=== PATIENT | female | born 1990 | race Caucasian/White ===

== ENCOUNTER 2025-02-08 15:27 | Inpatient (IN) | payer MEDICAID, OTHER ==
--- NOTE | 2025-02-08 20:48 | ED ---
Psych HPI - General Chief Complaint: Psychiatric Symptoms Stated Complaint: mental health eval - petition Time Seen by Provider: 02/08/25 19:00 Source: patient, police, RN notes reviewed Mode of arrival: ambulatory Limitations: no limitations - History of Present Illness Initial Comments: 34-year-old female presents emergency department with police from [facility] for psychiatric valuation. Patient states she is having increasing depression, suicide ideation. Patient states that she would like to overdose on meds. Patient has a history of bipolar disorder states that she has been receiving her medication over the last week. She does have a history of drug abuse - Related Data Allergies Allergy/AdvReac Type Severity Reaction Status Date / Time amoxicillin [From Amoxil] Allergy Rash/Hives Verified 02/08/25 16:34 Review of Systems ROS Statement: Those systems with pertinent positive or pertinent negative responses have been documented in the HPI. ROS Other: All systems not noted in ROS Statement are negative. Past Medical History Past Medical History: No Reported History Past Surgical History: Adenoidectomy, Tonsillectomy Past Psychological History: Anxiety, Bipolar, PTSD Smoking Status: Current every day smoker, Vaper General Exam Limitations: no limitations General appearance: alert, in no apparent distress Head exam: Present: atraumatic, normocephalic, normal inspection Eye exam: Present: normal appearance, PERRL, EOMI. Absent: scleral icterus, conjunctival injection, periorbital swelling ENT exam: Present: normal exam, normal oropharynx, mucous membranes moist Neck exam: Present: normal inspection, full ROM. Absent: tenderness, meningismus, lymphadenopathy Respiratory exam: Present: normal lung sounds bilaterally. Absent: respiratory distress, wheezes, rales, rhonchi, stridor Cardiovascular Exam: Present: regular rate, normal rhythm, normal heart sounds. Absent: systolic murmur, diastolic murmur, rubs, gallop, clicks Neurological exam: Present: alert, oriented X3 Psychiatric exam: Present: depressed Course Vital Signs 02/08/25 16:29 Temperature 98.2 F Pulse Rate 67 Respiratory 16 Rate Blood Pressure 121/83 O2 Sat by Pulse 99 Oximetry Medical Decision Making - Medical Decision Making Was pt. sent in by a medical professional or institution (, PA, JUKEBOX CHECKER, urgent care, hospital, or retirement...) When possible be specific @ -No Did you speak to anyone other than the patient for history (EMS, parent, family, police, friend...)? What history was obtained from this source @ -No Did you review nursing and triage notes (agree or disagree)? Why? @ -I reviewed and agree with nursing and triage notes Were old charts reviewed (outside hosp., previous admission, EMS record, old EKG, old radiological studies, urgent care reports/EKG's, retirement records)? Report findings @ -No old charts were reviewed Differential Diagnosis (chest pain, altered mental status, abdominal pain women, abdominal pain men, vaginal bleeding, weakness, fever, dyspnea, syncope, headache, dizziness, GI bleed, back pain, seizure, CVA, palpatations, mental health, musculoskeletal)? @ -Differential Mental Health Depression, anxiety, bipolar, psychosis, schizophrenia, borderline personality, situational depression, adjustment disorder, behavioral disorder, brain tumor, malingering, substance abuse, encephalopathy, medication reaction, dementia, hypothyroidism, degenerative neurologic disorder, lupus.... This is not meant to be all-inclusive list EKG interpreted by me (3pts min.). @ -None X-rays interpreted by me (1pt min.). @ -None done CT interpreted by me (1pt min.). @ -None done U/S interpreted by me (1pt. min.). @ -None done What testing was considered but not performed or refused? (CT, X-rays, U/S, l abs)? Why? @ -None What meds were considered but not given or refused? Why? @ -None Did you discuss the management of the patient with other professionals (professionals i.e. , PA, JUKEBOX CHECKER, lab, RT, psych nurse, social work professor, product engineer, teacher, occupational health and safety officer, heel caser)? Give summary @ -EPS evaluate patient recommended inpatient treatment. Was smoking cessation discussed for >3mins.? @ -No Was critical care preformed (if so, how long)? @ -No Were there social determinants of health that impacted care today? How? (Homelessness, low income, unemployed, alcoholism, drug addiction, transportation, low edu. Level, literacy, decrease access to med. care, [facility], rehab)? @ -No Was there de-escalation of care discussed even if they declined (Discuss DNR or withdrawal of care, Hospice)? DNR status @ -No What co-morbidities impacted this encounter? (DM, HTN, Smoking, COPD, CAD, Cancer, CVA, ARF, Chemo, Hep., AIDS, mental health diagnosis, sleep apnea, morbid obesity)? @ -None Was patient admitted / discharged? Hospital course, mention meds given and route, prescriptions, significant lab abnormalities, going to OR and other pertinent info. @ -Admit to 3 W. Undiagnosed new problem with uncertain prognosis? @ -No Drug Therapy requiring intensive monitoring for toxicity (Heparin, Nitro, Insulin, Cardizem)? @ -No Were any procedures done? @ -No Diagnosis/symptom? @ -Depression bipolar disorder Acute, or Chronic, or Acute on Chronic? @ -Acute Uncomplicated (without systemic symptoms) or Complicated (systemic symptoms)? @ -Complicated Side effects of treatment? @ -No Exacerbation, Progression, or Severe Exacerbation? @ -No Poses a threat to life or bodily function? How? (Chest pain, [place], [place], pneumonia, PE, COPD, DKA, ARF, appy, cholecystitis, CVA, Diverticulitis, Homicidal, Suicidal, threat to staff... and all critical care pts) @ -Yes suicidal ideation - Lab Data Lab Results 02/08/25 02/08/25 02/08/25 Range/Units 20:03 22:00 22:00 Urine HCG, Qual Not Detected (Not Detectd) Urine Opiates Screen Not Detected (NotDetected) Ur Oxycodone Screen Not Detected (NotDetected) Urine Methadone Screen Not Detected (NotDetected) Ur Barbiturates Screen Not Detected (NotDetected) U Tricyclic Antidepress Detected H (NotDetected) Ur Phencyclidine Scrn Not Detected (NotDetected) Ur Amphetamines Screen Not Detected (NotDetected) U Methamphetamines Scrn Not Detected (NotDetected) U Benzodiazepines Scrn Not Detected (NotDetected) Urine Cocaine Screen Not Detected (NotDetected) U Marijuana (THC) Screen Not Detected (NotDetected) SARS-CoV-2 (PCR) Not Detected (Not Detectd) Disposition Clinical Impression: Depression, Suicidal ideation, Bipolar disorder Disposition: TRANSFER TO PSYCH HOSP/UNIT Referrals: None,Stated [Primary Care Provider] - 1-2 days Time of Disposition: 23:18
[2025-02-08 22:38] LABS: Barbiturate Screen,Urine Not Detected (NotDetected); Benzodiazepines Screen,Urine Not Detected (NotDetected); Opiate Screen,Urine Not Detected (NotDetected); Oxycodone Screen, Urine Not Detected (NotDetected); Phencyclidine Screen,Urine Not Detected (NotDetected); Tricyclic Antidepressant,Urine Detected (NotDetected); Urn Cannabinoid Scrn Not Detected (NotDetected)
[2025-02-08] MEDS ORDERED: LORazepam 1 MG TAB PO PRN (23:53)
[2025-02-08] MEDS ORDERED: OLANZapine 10 MG VIAL IM PRN (23:53)
[2025-02-09] MEDS: LORazepam 1 MG TAB PO PRN (01:25)
[2025-02-09] MEDS: FOLIC ACID 1 MG TAB PO SCH (08:04)
[2025-02-09] MEDS: THIAMINE 100 MG TAB PO SCH (08:04)
[2025-02-09] MEDS: MULTIVITAMINS, THERA 1 EACH TAB PO SCH (08:04)
[2025-02-09] MEDS: DULoxetine HCL 60 MG CAPSULE.DR PO SCH (08:04)
[2025-02-09 08:13] LABS: Basophils # (A) 0.06 10*3/uL (0.00-0.10); Basophils % (A) 1.0 %; Eosinophils # (A) 0.15 10*3/uL (0.04-0.35); Eosinophils % (A) 2.4 %; HCT 41.3 % (37.2-46.3); HGB 13.7 g/dL (12.0-15.0); Lymphocytes # (A) 3.15 10*3/uL (0.90-5.00); Lymphocytes % (A) 50.3 %; MCH 30.2 pg (27.0-32.0); MCHC 33.2 g/dL (32.0-37.0); MCV 91.0 fL (80.0-97.0); Monocytes # (A) 0.52 10*3/uL (0.20-1.00); Monocytes % (A) 8.3 %; Neutrophils # (A) 2.36 10*3/uL (1.80-7.70); Neutrophils % (A) 37.7 %; Platelet Count 262 10*3/uL (140-440); RBC 4.54 10*6/uL (4.10-5.20); RDW 13.0 % (11.5-14.5); WBC 6.26 10*3/uL (4.50-10.00)
[2025-02-09] MEDS: NICOTINE GUM (POLACRILEX) 2 MG GUM BUCCAL PRN (08:32)
[2025-02-09 08:33] LABS: ALT 111 U/L (4-34); AST 44 U/L (14-36); African American GFR (CKD) >90 (>60 ml/min/1.73 sqM); Albumin 4.0 g/dL (3.5-5.0); Alkaline Phosphatase 53 U/L (38-126); Anion Gap 5 mmol/L; Blood Urea Nitrogen 16 mg/dL (7-17); Calcium 9.4 mg/dL (8.4-10.2); Carbon Dioxide 31 mmol/L (22-30); Chloride 104 mmol/L (98-107); Glucose 91 mg/dL (74-99); Non-African American GFR(CKD) 78 (>60 ml/min/1.73 sqM); Potassium 4.6 mmol/L (3.5-5.1); Sodium 140 mmol/L (137-145); Total Protein 6.8 g/dL (6.3-8.2)
[2025-02-09] MEDS ORDERED: NICOTINE 14MG/24HR PATCH TRANSDERM SCH (09:00)
--- NOTE | 2025-02-09 12:20 | P.HP ---
Psychiatric H&P - . H&P Date: 02/09/25 History & Physical: Allergies Allergy/AdvReac Type Severity Reaction Status Date / Time amoxicillin from Amoxil Allergy Rash/Hives Verified 02/08/25 16:34 Vital Signs Temp 97.8 F 02/09/25 08:03 Pulse 118 H 02/09/25 08:03 Resp 18 02/09/25 08:03 BP 101/67 02/09/25 08:32 Pulse Ox 99 02/09/25 08:03 FiO2 Intake & Output 02/08/25 02/09/25 02/09/25 18:59 06:59 18:59 Weight 90.718 kg 85.417 kg Laboratory Last Values WBC 6.26 10*3/uL (4.50-10.00) 02/09/25 07:55 RBC 4.54 10*6/uL (4.10-5.20) 02/09/25 07:55 Hgb 13.7 g/dL (12.0-15.0) 02/09/25 07:55 Hct 41.3 % (37.2-46.3) 02/09/25 07:55 MCV 91.0 fL (80.0-97.0) 02/09/25 07:55 MCH 30.2 pg (27.0-32.0) 02/09/25 07:55 MCHC 33.2 g/dL (32.0-37.0) 02/09/25 07:55 Plt Count 262 10*3/uL (140-440) 02/09/25 07:55 MPV 9.5 fL (9.5-12.2) 02/09/25 07:55 Immature Gran % (Auto) 0.3 % 02/09/25 07:55 Neutrophils % 37.7 % 02/09/25 07:55 Lymphocytes % 50.3 % 02/09/25 07:55 Monocytes % 8.3 % 02/09/25 07:55 Eosinophils % 2.4 % 02/09/25 07:55 Basophils % 1.0 % 02/09/25 07:55 Immature Gran # 0.02 10*3/uL (0.00-0.04) 02/09/25 07:55 Neutrophils # 2.36 10*3/uL (1.80-7.70) 02/09/25 07:55 Lymphocytes # 3.15 10*3/uL (0.90-5.00) 02/09/25 07:55 Monocytes # 0.52 10*3/uL (0.20-1.00) 02/09/25 07:55 Eosinophils # 0.15 10*3/uL (0.04-0.35) 02/09/25 07:55 Basophils # 0.06 10*3/uL (0.00-0.10) 02/09/25 07:55 Sodium 140 mmol/L (137-145) 02/09/25 07:55 Potassium 4.6 mmol/L (3.5-5.1) 02/09/25 07:55 Chloride 104 mmol/L (98-107) 02/09/25 07:55 Carbon Dioxide 31 mmol/L (22-30) H 02/09/25 07:55 Anion Gap 5 mmol/L 02/09/25 07:55 BUN 16 mg/dL (7-17) 02/09/25 07:55 Creatinine 0.94 mg/dL (0.52-1.04) 02/09/25 07:55 Est GFR (CKD-EPI)AfAm >90 (>60 ml/min/1.73 sqM) 02/09/25 07:55 Est GFR (CKD-EPI)NonAf 78 (>60 ml/min/1.73 sqM) 02/09/25 07:55 Glucose 91 mg/dL (74-99) 02/09/25 07:[address] Glu mg/dL 117 mg/dL 02/09/25 07:55 Hemoglobin A1c 5.7 % (<=6.0) 02/09/25 07:55 Calcium 9.4 mg/dL (8.4-10.2) 02/09/25 07:55 Total Bilirubin 0.4 mg/dL (0.2-1.3) 02/09/25 07:55 AST 44 U/L (14-36) H 02/09/25 07:55 ALT 111 U/L (4-34) H 02/09/25 07:55 Alkaline Phosphatase 53 U/L (38-126) 02/09/25 07:55 Total Protein 6.8 g/dL (6.3-8.2) 02/09/25 07:55 Albumin 4.0 g/dL (3.5-5.0) 02/09/25 07:55 TSH 5.140 mIU/L (0.465-4.680) H 02/09/25 07:55 Urine HCG, Qual Not Detected (Not Detectd) 02/08/25 22:00 Urine Opiates Screen Not Detected (NotDetected) 02/08/25 22:00 Ur Oxycodone Screen Not Detected (NotDetected) 02/08/25 22:00 Urine Methadone Screen Not Detected (NotDetected) 02/08/25 22:00 Ur Barbiturates Screen Not Detected (NotDetected) 02/08/25 22:00 U Tricyclic Antidepress Detected (NotDetected) H 02/08/25 22:00 Ur Phencyclidine Scrn Not Detected (NotDetected) 02/08/25 22:00 Ur Amphetamines Screen Not Detected (NotDetected) 02/08/25 22:00 U Methamphetamines Scrn Not Detected (NotDetected) 02/08/25 22:00 U Benzodiazepines Scrn Not Detected (NotDetected) 02/08/25 22:00 Urine Cocaine Screen Not Detected (NotDetected) 02/08/25 22:00 U Marijuana (THC) Screen Not Detected (NotDetected) 02/08/25 22:00 SARS-CoV-2 (PCR) Not Detected (Not Detectd) 02/08/25 20:03 02/09/25 11:24 IDENTIFYING DATA: Patient is a 34-year-old female, who is coming from [facility], she is currently unemployed she has 5 kids she is single HPI: Patient presented to the hospital from the [facility], brought in due to increased depression and suicidal ideations with plan to overdose on medications. Patient was seen by EPS nurse and according to note "pt lying on stretcher in room. pt presents with labile affect. pt states that she was brought in for "suicidal thoughts" that have been "worsening the past couple weeks." pt states that she has been struggling with depression for some time, but had not had SI until recently. pt states that she has been drinking "probably 2 gallons" of vodka over the past 2 weeks. pt states that she had been drinking about a pint of vodka per day prior to being arrested. pt states that she had planned to overdose on fentanyl and that she had a "large amount being shipped to my house." pt reports that she became concerned about her SI, so she called 911 on herself. pt states that police came and she had warrants for back child support, so she was arrested. pt states that SI remain significant while she was in [facility] and she has had thoughts to cut her wrist, throat, or Hoskins's tendon. pt states that she did not ask for a razor while at the [facility] because she was worried that she would take it apart and attempt to cut herself. pt reports that she became concerned for herself when she stopped being scared of dying. pt continues to report SI. pt denies HI and hallucinations. No delusional thoughts verbalized. pt cooperative with assessment." Patient was seen today for psychiatric evaluation. Patient was lying in bed agreeable to speak to senior writer in the office. Claims that she has been having an increase in depression and suicidal ideations for the past several months. Claims that she had a plan to overdose on fentanyl in October and was admitted to the psychiatric hospital outside, claims that she was compliant with medications at that time and did go to [facility] however stopped going and stopped taking her medications appropriately. Claims that she was attending the use "marijuana" to help stabilize her symptoms. She states that she was in a "downward spiral" and claims that she has been feeling more depressed lately and suicidal. Claims that she has been drinking more recently about a pint a day of vodka. States that she does have minor withdrawal symptoms at this time her last drink was on Friday. States that she does have a history of several manic episodes and has had bipolar disorder for "several years". Claims that her sleep and appetite have been on and off lately. Patient admits to having suicidal ideations at this time, no plan or intent, denies any homicidal ideations intent or plan. At this time patient denies any auditory or visual hallucinations. Patient denies any flight of ideas racing thoughts and increased in goal directed behavior. Patient a dmits to using alcohol regularly as noted above, vapoes nicotine, also uses cannabis. Urine direction is positive for TCAs PAST PSYCHIATRIC HISTORY: Patient has a history of bipolar disorder for several years. Claims that she is currently on Cymbalta BuSpar and Seroquel, has been taking it inconsistently. Her last psychiatric hospitalization was at [facility] in October 2024. Claims that she was following up at [facility] with her psychiatrist Dr. Murphy. Claims that she overdosed on pills because PMH: as per ER note ALLERGIES: as per EMR CHEMICAL DEPENDENCY HISTORY: as per HPI FAMILY PSYCHIATRIC/SUBSTANCE USE HISTORY: Claims that several of her siblings have mental illness including bipolar disorder, also claims that her mother has bipolar disorder SOCIAL HISTORY: Patient was born and raised in [place]. Claims that she completed up to ninth grade in school, states that she has been employed on and off currently unemployed. Previously worked in a [employer]. States that she has been in [facility] several times in the past including having domestic violence charges drug-related and also retail fraud. Currently has been in [facility] for the past 5 days for nonpayment of child support. MENTAL STATUS EXAM: General Appearance: Patient appears to be tall, hair tied back, stated age is alert, directable, and attempts to cooperate. Patient appears to have poor hygiene and grooming. Behavior: Patient is seated without any agitated behavior. Attempts to cooperate Speech: Patient's speech is fluent and nonpressured. Mood/Affect: Patient reports their mood is depressed and anxious, affect is congruent and constricted. Suicidality/Homicidality: Patient denies having any homicidal ideation intent or plan. Admits to suicidal thoughts and no intent or plan Perceptions: Patient denies any visual hallucinations and denies any auditory hallucinations Though content/process: There is no evidence of any delusional thought content and thought process is linear and goal-directed. Memory and concentration: AOX3, grossly intact for the purposes of this session. Can spell "WORLD" backwards Judgment and insight: Poor STRENGTHS/WEAKNESSES: strength is that patient is resilient. Weakness is that patient has poor judgment and is impulsive INTELLECT: Average IMPRESSIONS: Bipolar disorder, current episode depressed Cannabis use disorder Alcohol use disorder Nicotine dependence PLAN: -Patient is admitted under voluntary status to [facility]HU for stabilization of psychiatric symptoms and safety. Patient has signed adult voluntary form and has signed medication consent and is placed in patient's chart. -Medications : Cymbalta decreased to 30 mg daily for mood/anxiety, BuSpar 20 mg 3 times daily for anxiety, lithium ER 450 mg nightly for mood stabilization/suicidal ideations, doxepin 10 mg nightly for insomnia. -Ativan and Haldol PRN for agitation/aggression -Started thiamine, MVM for etoh use -CIWA protocol with Ativan PRN for ETOH withdrawal. Scheduled Librium for alcohol withdrawal with plan to taper. -Patient was counselled on substance abuse and desired to cut back on use. Will offer patient subtance use rehab -Patient was informed of the risks, benefits and side effects of the medications and patient verbally consented to taking the medications. Patient signed med consent form and was placed in chart. Patient was offered medication information and accepted it -Internal Medicine consult to perform medical evaluation and physical. -NRT -nicotine patch -SW on board for discharge planning. Encourage patient to participate in groups to work on coping skills. 02/09/25 12:14
[2025-02-09 15:26] LABS: Cholesterol 177.00 mg/dL (0.00-200.00); HDL Cholesterol 69.60 mg/dL (40.00-60.00); LDL Cholesterol,Calculated 87.0 mg/dL (0.0-131.0); Triglycerides 102.00 mg/dL (0.00-149.00); VLDL Calculation 20.40 mg/dL (5.00-40.00)
[2025-02-09 16:42] LABS: Bacteria,Urine Occasional /hpf; Bilirubin,Urine Negative (Negative); Blood,Urine Negative (Negative); Color,Urine Colorless; Glucose,Urine (UA) Negative (Negative); Ketones,Urine Negative (Negative); Leukocyte Esterase,Urine Negative (Negative); Nitrite,Urine Negative (Negative); PH, Urine 7.0 (5.0-8.0); Protein,Urine Negative (Negative); RBC,Urine 1 /hpf (0-5); Specific Gravity,Urine 1.009 (1.001-1.035); Squamous Epithelial Cell,Urine 1 /hpf (0-4); Urobilinogen,Urine <2.0 mg/dL (<2.0); WBC,Urine 1 /hpf (0-5)
[2025-02-09] MEDS: DOXEPIN 10 MG CAP PO SCH (20:24)
[2025-02-09] MEDS: LITHIUM CARBONATE ER 450 MG TABLET.ER PO SCH (20:24)
[2025-02-09] MEDS: OLANZapine 5 MG TAB PO PRN (23:26)
--- NOTE | 2025-02-10 07:28 | P.MDCNMH ---
History of Present Illness H&P Date: 02/09/25 34 year old with alcohol abuse Patient is here for mental health evaluation , after being released from nursing home Medicine consulted for medical management Patient has concerns regarding sexually transmitted diseases she did not specify any symptoms of increased discharge or any lesions however she has multiple partners and would like to get tested Patient denies any fevers chills nausea vomiting abdominal pain chest pain trouble breathing denies any dizziness lightheadedness denies any urinary changes or bowel habit changes denies any focal neurodeficits Review of systems All systems reviewed with pertinent positive negatives as per HPI on exam Constitutional: No acute distress, conversant, pleasant Eyes: Anicteric sclerae, moist conjunctiva, Pupils equal round reactive to light Neck: Supple, no masses, or JVD No carotid bruits No thyromegaly Lungs: Clear to auscultation Clear to percussion Normal respiratory effort, no accessory muscle use Cardiovascular: Heart regular in rate and rhythm, No murmurs, gallops, or rubs No peripheral edema Abdominal: Soft Nontender, no guarding, rebound or rigidity Abdomen moving with respiration Tenderness to percussion over the costovertebral angle left Extremities: No digital cyanosis No clubbing Pedal pulses intact and symmetrical Radial pulses intact and symmetrical No calf tenderness Psychiatric: Alert and oriented to person, place and time Neuro Muscles Strength 5/5 in all 4 extremities Sensation to light touch grossly present throughout Cranial nerves II-XII grossly intact Assessment and plan High risk sexual behavior Check for STDs Check for HIV and hepatitis Patient denies any symptoms at this time thank you for this consultation Past Medical History Past Medical History: No Reported History History of Any Multi-Drug Resistant Organisms: None Reported Past Surgical History: Adenoidectomy, Tonsillectomy Past Anesthesia/Blood Transfusion Reactions: No Reported Reaction Smoking Status: Current every day smoker, Vaper Medications and Allergies Home Medications Medication Instructions Recorded Confirmed Type DULoxetine HCL [Cymbalta] 60 mg PO DAILY 02/08/25 02/08/25 History QUEtiapine [SEROquel] 200 mg PO HS 02/08/25 02/08/25 History busPIRone HCL [Buspirone HCl] 10 mg PO TID 02/08/25 02/08/25 History Allergies Allergy/AdvReac Type Severity Reaction Status Date / Time amoxicillin [From Amoxil] Allergy Rash/Hives Verified 02/08/25 16:34 Physical Exam Vitals: Vital Signs Temp Pulse Resp BP Pulse Ox 02/09/25 21:00 98.1 F 100 16 115/72 99 02/09/25 08:32 101/67 02/09/25 08:03 97.8 F 118 H 18 82/54 99 Cranial Nerve Examination - Cranial Nerves Cranial Nerve II- Optic: Intact Cranial Nerve III- Oculomotor: Intact Cranial Nerve IV- Trochlear: Intact Cranial Nerve V- Trigeminal: Intact Cranial Nerve - Abducens: Intact Cranial Nerve VII- Facial: Intact Cranial Nerve VIII- Auditory: Intact Cranial Nerve IX- Glossopharyngeal: Intact Cranial Nerve X- Vagus: Intact Cranial Nerve XI- Accessory: Intact Cranial Nerve XII- Hypoglossal: Intact Results CBC & Chem 7: 02/09/25 07:55 02/09/25 07:55 Labs: Abnormal Lab Results - Last 24 Hours (Table) 02/09/25 02/09/25 Range/Units 03:06 07:55 Carbon Dioxide 31 H (22-30) mmol/L AST 44 H (14-36) U/L ALT 111 H (4-34) U/L HDL Cholesterol 69.60 H (40.00-60.00) mg/dL TSH 5.140 H (0.465-4.680) mIU/L Urine Appearance Cloudy H (Clear) Urine Bacteria Occasional H (None) /hpf
[2025-02-10 10:41] LABS: Hepatitis A Antibody IgM Nonreactive (Nonreactive); Hepatitis B Surface Antigen Nonreactive (Nonreactive); Hepatitis C IgG Antibody Nonreactive (Nonreactive)
--- NOTE | 2025-02-10 11:40 | P.PN ---
Progress Note - Text Progress Note Date: 02/10/25 Interval history: Patient was seen today for psychiatric follow-up. She was lying in bed with a bit hesitant to speak to technical proposal writer however did cooperate. Claims that she feels that she did not sleep well last night, only got about 1 or 2 hours. Claims that she still feels "exhausted". She claims that she has been taking the medications not reporting any side effects at this time. Claims that she is still feeling depressed and endorsing anxiety. Claims that her appetite is mildly improving since yesterday. Hygiene and grooming appear to be mildly improving. Has been going to some groups, denies any auditory or visual hallucinations denies any suicidal or homicidal ideations intent or plan. MENTAL STATUS EXAM: General Appearance: Patient appears to be tall, hair tied back, stated age is alert, directable, and attempts to cooperate. Patient appears to have Improving mildlyhygiene and grooming. Behavior: Patient is seated without any agitated behavior. Attempts to cooperate Speech: Patient's speech is fluent and nonpressured. Mood/Affect: Patient reports their mood is depressed and anxious, affect is congruent and constricted. Improving mildly Suicidality/Homicidality: Patient denies having any homicidal ideation intent or plan. Admits to suicidal thoughts and no intent or plan Perceptions: Patient denies any visual hallucinations and denies any auditory hallucinations Though content/process: There is no evidence of any delusional thought content and thought process is linear and goal-directed. [place] today Memory and concentration: AOX3, grossly intact for the purposes of this session Judgment and insight: Poor, improving mildly IMPRESSIONS: Bipolar disorder, current episode depressed Cannabis use disorder Alcohol use disorder Nicotine dependence PLAN: -Patient is admitted under voluntary status to [facility] for stabilization of psychiatric symptoms and safety. Patient has signed adult voluntary form and has signed medication consent and is placed in patient's chart. -Medications : Cymbalta 30 mg daily for mood/anxiety, BuSpar 20 mg 3 times daily for anxiety, lithium ER 450 mg nightly for mood stabilization/suicidal ideations, increase doxepin 20 mg nightly for insomnia. -Ativan and Haldol PRN for agitation/aggression -thiamine, MVM for etoh use -CIWA protocol with Ativan PRN for ETOH withdrawal. Scheduled Librium for alcohol withdrawal with plan to continue tapering Hopeful for discharge early next week if patient is improving.-NRT -nicotine patch -SW on board for discharge planning. Encourage patient to participate in groups to work on coping skills. Patient continues to be on a senior care hold. hopeful for discharge friday - friday
[2025-02-10 15:04] LABS: HIV 2 AB Non-Reactive (Non-Reactive); HIV AB P24 Non-Reactive (Non-Reactive); HIV P24 AG Non-Reactive (Non-Reactive)
[2025-02-10] MEDS: DOXEPIN 10 MG CAP PO SCH (19:59)
[2025-02-10] MEDS ORDERED: DOXEPIN 25 MG CAP PO SCH (21:00)
--- NOTE | 2025-02-11 12:13 | P.PN ---
Progress Note - Text Progress Note Date: 02/11/25 Interval history: Patient was seen today for psychiatric follow-up. The patient wanted to speak to telegraphic typewriter operator in her room today. Patient states that she is feeling fairly tired during the day, was asking about why she feels this way and if it is related to her medications. Claims that she is having difficulty sleeping last night, claims that the doxepin has not been helping, claims that she wants to be back on her Seroquel as I worked in the past. States that her mood has been improving however and also anxiety as well. Has not been going to many groups. Claims that she is up for meals. Not reporting any other side effects. Hygiene and grooming appear to be mildly improving. Has been going to some groups, denies any auditory or visual hallucinations denies any suicidal or homicidal ideations intent or plan. MENTAL STATUS EXAM: General Appearance: Patient appears to be tall, hair tied back, stated age is alert, directable, and attempts to cooperate. Patient appears to have Improving mildlyhygiene and grooming. Behavior: Patient is seated without any agitated behavior. Attempts to cooperate, improving mildly Speech: Patient's speech is fluent and nonpressured. Mood/Affect: Patient reports their mood is improving mildly, affect is congruent and constricted. Improving mildly Suicidality/Homicidality: Patient denies having any homicidal ideation intent or plan. Admits to suicidal thoughts and no intent or plan Perceptions: Patient denies any visual hallucinations and denies any auditory hallucinations Though content/process: There is no evidence of any delusional thought content and thought process is linear and goal-directed. [place] today Memory and concentration: AOX3, grossly intact for the purposes of this session Judgment and insight: Poor, improving mildly IMPRESSIONS: Bipolar disorder, current episode depressed Cannabis use disorder Alcohol use disorder Nicotine dependence PLAN: -Patient is admitted under voluntary status to [facility] for stabilization of psychiatric symptoms and safety. Patient has signed adult voluntary form and has signed medication consent and is placed in patient's chart. -Medications : increase/change Cymbalta 60 mg HS for mood/anxiety, decrease BuSpar 10 mg 3 times daily for anxiety, lithium ER 450 mg nightly for mood stabilization/suicidal ideations, d/c doxepin due to patient request and restart seroquel 100 mg qhs for sleep/anxiety/mood adjunct -Check lithium level Friday - Zyprexa PRN for agitation/aggression -thiamine, MVM for etoh use -d/c CIWA protocol with Ativan PRN for ETOH withdrawal. d/c Librium for alcohol withdrawal -NRT -nicotine patch + gum -SW on board for discharge planning. Encourage patient to participate in groups to work on coping skills. Patient continues to be on a [facility] hold. hopeful for discharge friday-friday if patient is improving.
[2025-02-11] MEDS: NICOTINE GUM (POLACRILEX) 2 MG GUM BUCCAL PRN (13:42)
[2025-02-11] MEDS: DULoxetine HCL 60 MG CAPSULE.DR PO SCH (20:17)
[2025-02-11] MEDS: QUEtiapine 100 MG TAB PO SCH (20:18)
[2025-02-11] MEDS: MAGNESIUM HYDROXIDE 2,400 MG/30 ML CUP PO PRN (20:48)
[2025-02-12] MEDS: IBUPROFEN 600 MG TAB PO PRN (16:04)
[2025-02-12] MEDS: LITHIUM CARBONATE ER 450 MG TABLET.ER PO SCH (16:26)
[2025-02-12] MEDS: DULoxetine HCL 60 MG CAPSULE.DR PO SCH (16:26)
[2025-02-12 17:01] LABS: Glucose,Whole Blood 164 mg/dL (70-110)
[2025-02-12] MEDS: MAG HYDROX/AL HYDROX/SIMETH 355 ML BOTTLE PO PRN (21:38)
--- NOTE | 2025-02-13 20:40 | P.PN ---
Progress Note - Text Progress Note Date: 02/12/25 Interval history: Patient was seen today, appeared polite but anxious on assessment. She reports her mood is "pretty good" today. She reports she is having difficulty sleeping at night and believes this is because her Cymbalta and [place] are ordered for bedtime and they are keeping her awake so she prefers to have take them in the morning. She appears anxious, moving quickly when walking, talking a bit fast but not pressured. Otherwise she claims things are going well. She denies any auditory or visual hallucinations. She denies any suicidal or homicidal ideation, intent or plan. MENTAL STATUS EXAM: General Appearance: Patient appears to be tall, stated age, improving hygiene and grooming. Behavior: Patient is standing without any agitated behavior. Attempts to cooperate, improving mildly Speech: Patient's speech is fluent and non-pressured. Mood/Affect: Patient reports their mood is good, affect is congruent and constricted. Suicidality/Homicidality: Patient denies having any homicidal or suicidal ideation intent or plan. Perceptions: Patient denies any visual hallucinations and denies any auditory hallucinations Though content/process: There is no evidence of any delusional thought content and thought process is linear and goal-directed. Memory and concentration: AOX3, grossly intact for the purposes of this session Judgment and insight: Poor, improving mildly Assessment/plan: -Patient is admitted under voluntary status to [facility] for stabilization of psychiatric symptoms and safety. Patient has signed adult voluntary form and has signed medication consent and is placed in patient's chart. -Medications: Change Cymbalta 60 mg from bedtime to morning per patient preference. She will take today's dose in the afternoon and start with morning dose tomorrow morning. Change [place] ER 450 mg from bedtime to morning per patient preference. She will take today's dose in the afternoon and will start with morning dose tomorrow morning. -[place] level ordered for Friday. -Encourage patient to participate in groups to work on coping skills. -Patient continues to be on a shelter hold.
--- NOTE | 2025-02-13 20:49 | P.PN ---
Progress Note - Text Progress Note Date: 02/13/25 Interval history: Patient was seen today, was walking quickly in and out of her room multiple ti mes. She reports her mood is "pretty good" today. She is recorded as having slept about 6 hours last night, she reports it was 6-8 hours last night. She appears anxious, asks for her Seroquel increased at bedtime to help her sleep better, and asks for something to help with her anxiety so we discussed increasing the Buspar dose. Otherwise she claims things are going well. She denies any auditory or visual hallucinations. She denies any suicidal or homicidal ideation, intent or plan. MENTAL STATUS EXAM: General Appearance: Patient appears to be tall, stated age, improving hygiene and grooming. Behavior: Patient is standing without any agitated behavior. Attempts to cooperate, improving mildly Speech: Patient's speech is fluent and non-pressured. Mood/Affect: Patient reports their mood is good, affect is congruent and constricted. Suicidality/Homicidality: Patient denies having any homicidal or suicidal ideation intent or plan. Perceptions: Patient denies any visual hallucinations and denies any auditory hallucinations Though content/process: There is no evidence of any delusional thought content and thought process is linear and goal-directed. Memory and concentration: AOX3, grossly intact for the purposes of this session Judgment and insight: Poor, improving mildly Assessment/plan: -Patient is admitted under voluntary status to [facility] for stabilization of psychiatric symptoms and safety. Patient has signed adult voluntary form and has signed medication consent and is placed in patient's chart. -Medications: Continue Cymbalta 60 mg daily in the morning and [place] ER 450 mg daily in the morning. Increase Buspar to 15 mg TID for anxiety. Increase Seroquel from 100 mg QHS to 200 mg QHS for mood/sleep. -[place] level ordered for Friday morning. -Encourage patient to participate in groups to work on coping skills. -Patient continues to be on a [facility] hold.
[2025-02-13] MEDS: QUEtiapine 100 MG TAB PO SCH (21:35)
[2025-02-14] MEDS: diphenhydrAMINE 25 MG CAP PO STA (03:28)
[2025-02-14 08:56] LABS: Lithium 0.3 mmol/L
[2025-02-14] MEDS: DULoxetine HCL 60 MG CAPSULE.DR PO SCH (09:13)
[2025-02-14] MEDS: diphenhydrAMINE 25 MG CAP PO PRN (09:13)
[2025-02-14 09:21] LABS: T4, Free (Free Thyroxine) 0.49 ng/dL (0.78-2.19)
--- NOTE | 2025-02-14 10:16 | P.PN ---
Progress Note - Text Progress Note Date: 02/14/25 Patient TSH is high and FT4 is low so will start levothyroxince 100mcg PO daily. Patient will need to recheck her TSH in 6 weeks with her PCP
--- NOTE | 2025-02-14 11:32 | P.PN ---
Progress Note - Text Progress Note Date: 02/14/25 Interval history: Patient was seen today for psychiatric follow-up. The patient wanted to speak to typewriter ribbon winder in her room today. Patient appears to be more awake today, alert and talkative. Claims that she is feeling a bit better, does claim that she has ADHD however claims that no one will prescribe her stimulants. She did claim that she got into a argument with another patient on the unit who she believes is "harassing me" and trying to hit on her. She states that she is here for mental health and wants improved. Feels that she has been going to groups improving in terms of mood and anxiety. States that she likes the medications where they are at now and dose. She did claim that her ex-boyfriend probably cheated on her and claims that her urine smells "funny" and she does have a little bit of uncomfortableness when she urinates, asking for further STD testing. Claims that she is eating well going to groups. Not reporting any other side effects. Hygiene and grooming appear to be mildly improving. denies any auditory or visual hallucinations denies any suicidal or homicidal ideations intent or plan. MENTAL STATUS EXAM: General Appearance: Patient appears to be tall, hair tied back, stated age is alert, directable, and attempts to cooperate. Patient appears to have Improving mildlyhygiene and grooming. Behavior: Patient is seated without any agitated behavior. Attempts to cooperate, improving mildly Speech: Patient's speech is fluent and nonpressured. More talkative today Mood/Affect: Patient reports their mood is improving mildly, affect is congruent and constricted. Improving mildly Suicidality/Homicidality: Patient denies having any homicidal ideation intent or plan. Admits to suicidal thoughts and no intent or plan Perceptions: Patient denies any visual hallucinations and denies any auditory hallucinations Though content/process: There is no evidence of any delusional thought content and thought process is linear and goal-directed. Memory and concentration: AOX3, grossly intact for the purposes of this session Judgment and insight: improving mildly IMPRESSIONS: Bipolar disorder, current episode depressed Cannabis use disorder Alcohol use disorder Nicotine dependence PLAN: -Patient is admitted under voluntary status to [facility] for stabilization of psychiatric symptoms and safety. Patient has signed adult voluntary form and has signed medication consent and is placed in patient's chart. -Medications : Cymbalta 60 mg daily for mood/anxiety, BuSpar 15 mg 3 times daily for anxiety, lithium ER 450 mg nightly for mood stabilization/suicidal ideations, seroquel 200 mg qhs for sleep/anxiety/mood adjunct - Zyprexa PRN for agitation/aggression -check trich, gonorrhea and chlamydia testing today -thiamine, MVM for etoh use -NRT -nicotine patch + gum -SW on board for discharge planning. Encourage patient to participate in groups to work on coping skills. Patient continues to be on a custodial hold. not interested in rehab. hopeful for discharge friday if patient is improving.
[2025-02-14 20:46] VITALS: RESP 16
[2025-02-15] MEDS: LEVOTHYROXINE 100 MCG TAB PO SCH (06:59)
[2025-02-15 09:03] VITALS: BP 89/52; PULSE 95; TEMP 98
[2025-02-15] MEDS: ACETAMINOPHEN TAB 325 MG TAB PO PRN (11:13)
--- NOTE | 2025-02-15 11:23 | P.DS ---
Providers Date of admission: 02/08/25 23:41 Expected date of discharge: 02/15/25 Attending physician: Oscar Zhu MD Consults: 02/08/25 23:53 Consult Physician Routine Consulting Provider: [facility] Consult Reason/Comments: H&P and medical Do you want consulting provider notified?: Yes Primary care physician: Stated None - Discharge Diagnosis(es) (1) Bipolar disorder current episode depressed Current Visit: Yes Status: Acute Priority: High (2) Cannabis use disorder Current Visit: Yes Status: Acute Priority: Medium (3) Alcohol use disorder Current Visit: Yes Status: Acute Priority: Medium (4) Nicotine dependence Current Visit: Yes Status: Acute Priority: Low Hospital Course: Admission HPI: Admission note was completed by documentation writer "Patient is a 34-year-old female, who is coming from long term, she is currently unemployed she has 5 kids she is single. Patient presented to the hospital from the long term, brought in due to increased depression and suicidal ideations with plan to overdose on medications. Patient was seen by EPS nurse and according to note "pt lying on stretcher in room. pt presents with labile affect. pt states that she was brought in for "suicidal thoughts" that have been "worsening the past couple weeks." pt states that she has been struggling with depression for some time, but had not had SI until recently. pt states that she has been drinking "probably 2 gallons" of vodka over the past 2 weeks. pt states that she had been drinking about a pint of vodka per day prior to being arrested. pt states that she had planned to overdose on fentanyl and that she had a "large amount being shipped to my house." pt reports that she became concerned about her SI, so she called 911 on herself. pt states that police came and she had warrants for back child support, so she was arrested. pt states that SI remain significant while she was in long term and she has had thoughts to cut her wrist, throat, or Janeth's tendon. pt states that she did not ask for a razor while at the long term because she was worried that she would take it apart and attempt to cut herself. pt reports that she became concerned for herself when she stopped being scared of dying. pt continues to report SI. pt denies HI and hallucinations. No delusional thoughts verbalized. pt cooperative with assessment." Patient was seen today for psychiatric evaluation. Patient was lying in bed agreeable to speak to documentation writer in the office. Claims that she has been having an increase in depression and suicidal ideations for the past several months. Claims that she had a plan to overdose on fentanyl in October and was admitted to the psychiatric hospital outside, claims that she was compliant with medications at that time and did go to [facility] however stopped going and stopped taking her medications appropriately. Claims that she was attending the use "marijuana" to help stabilize her symptoms. She states that she was in a "downward spiral" and claims that she has been feeling more depressed lately and suicidal. Claims that she has been drinking more recently about a pint a day of vodka. States that she does have minor withdrawal symptoms at this time her last drink was on Friday. States that she does have a history of several manic episodes and has had bipolar disorder for "several years". Claims that her sleep and appetite have been on and off lately. Patient admits to having suicidal ideations at this time, no plan or intent, denies any homicidal ideations intent or plan. At this time patient denies any auditory or visual hallucinations. Patient denies any flight of ideas racing thoughts and increased in goal directed behavior. Patient admits to using alcohol regularly as noted above, vapoes nicotine, also uses cannabis. Urine direction is positive for TCAs" Hospital course: Upon admission to the unit patient was directable and agreeable to commence treatment and signed adult voluntary form. Patient was initially depressed and anxious suicidal however with time and treatment patient got along well with other patients on the unit and followed unit protocol. Patient was compliant with the medications and denied any side effects throughout hospital course. Patient was started on Cymbalta 60 mg daily for mood/anxiety, BuSpar increased to 20 mg twice daily for anxiety, Lithobid 450 mg nightly for mood stabilization/suicidal ideations, Seroquel 200 mg nightly for sleep/severe anxiety/mood adjunct, Zyprexa p.o. as needed for severe anxiety and agitation. Patient spoke of her stressors and engaged in therapy both group/activity th erapy. Patient was also seen by medical team for history and physical exam. Throughout the course of the hospitalization patient gradually improved with regards to mood, anxiety, suicidal thoughts, sleep and returned back to their baseline level of functioning. On the day of discharge patient denied any suicidal or homicidal ideations intent or plan denied any auditory or visual hallucinations. Patient did make vague statements of self-harm however this was mainly in the context of being discharged back to long term as an attempt to evade her sentence. Patient endorsed wanting to live for her family and her future. The patient denied any access to guns or weapons. Patient denied any paranoia and did not endorse any delusions. Patient does have a significant history of substance abuse and was counseled on abstaining from all substances including alcohol and marijuana. Patient was offered however declined inpatient substance-abuse rehab. Patient elected to do outpatient substance use treatment program through their outpatient provider. Patient was also counseled on the medications and need for regular compliance and was encouraged to follow-up with their outpatient appointment for mental health and also for primary care. Patient was a long term hold, will be returning back to long term upon discharge from the mental health unit. Mental status exam: General Appearance: Patient appears to be tall, stated age is alert, pleasant, and cooperative. Patient is in no acute distress and has improved hygiene and grooming Behavior: Patient is calmly seated without any agitated behavior. manipulative at times, deceptive. Speech: Patient's speech is fluent and nonpressured. Mood/Affect: Patient reports their mood is "ok", affect is congruent Suicidality/Homicidality: Patient denies having any suicidal or homicidal ideation intent or plan. Perceptions: Patient denies any auditory or visual hallucinations. Though content/process: There is no evidence of any delusional thought content and thought process is linear and goal-directed. focused on evading long term time Memory and concentration: AOX3, grossly intact for the purposes of this session. Can spell "WORLD" backwards correctly. Judgment and insight: Chronically poor, however has improved with guarded prognosis Impression: Bipolar disorder current episode depressed Alcohol use disorder Cannabis use disorder Nicotine dependence Personality disorder unspecified Plan: -Continue with discharge today as patient has improved and stabilized psychiatrically and is not currently an imminent threat to themself and/or othe rs. Patient will remain at chronically elevated risk for harm to self and/or others due to their impulsivity and substance abuse. -Continue medications: Cymbalta 60 mg daily for mood/anxiety, BuSpar 20 mg 3 times daily for anxiety, Lithobid 450 mg nightly for mood stabilization/suicidal ideations, Seroquel 200 mg nightly for sleep/severe anxiety/mood adjunct, Zyprexa p.o. 5 mg twice daily as needed for severe anxiety/agitation -Patient was counseled on the need for medication compliance and appropriate follow-up at mental health and also primary care for medical issues. Patient verbalized understanding and agreed. -Social work to help coordinate patients discharge today. also to ensure safe home environment that guns/weapons are either removed from the home or locked away. Social work also to arrange for patients follow up appointments with [facility] and provider through [facility] for psychiatric care along with follow up with primary care provider. -Patient counseled on abstaining from recreational drugs and marijuana and alcohol. Was informed/educated on the adverse effects on their physical and mental health. Patient verbally agreed and understood. -Patient was instructed to return to the hospital or seek immediate medical care if their psychiatric or medical symptoms do worsen or reoccur. Allergies Allergy/AdvReac Type Severity Reaction Status Date / Time amoxicillin [From Amoxil] Allergy Rash/Hives Verified 02/08/25 16:34 Laboratory Results WBC 6.26 10*3/uL (4.50-10.00) 02/09/25 07:55 RBC 4.54 10*6/uL (4.10-5.20) 02/09/25 07:55 Hgb 13.7 g/dL (12.0-15.0) 02/09/25 07:55 Hct 41.3 % (37.2-46.3) 02/09/25 07:55 MCV 91.0 fL (80.0-97.0) 02/09/25 07:55 MCH 30.2 pg (27.0-32.0) 02/09/25 07:55 MCHC 33.2 g/dL (32.0-37.0) 02/09/25 07:55 Plt Count 262 10*3/uL (140-440) 02/09/25 07:55 MPV 9.5 fL (9.5-12.2) 02/09/25 07:55 Immature Gran % (Auto) 0.3 % 02/09/25 07:55 Neutrophils % 37.7 % 02/09/25 07:55 Lymphocytes % 50.3 % 02/09/25 07:55 Monocytes % 8.3 % 02/09/25 07:55 Eosinophils % 2.4 % 02/09/25 07:55 Basophils % 1.0 % 02/09/25 07:55 Immature Gran # 0.02 10*3/uL (0.00-0.04) 02/09/25 07:55 Neutrophils # 2.36 10*3/uL (1.80-7.70) 02/09/25 07:55 Lymphocytes # 3.15 10*3/uL (0.90-5.00) 02/09/25 07:55 Monocytes # 0.52 10*3/uL (0.20-1.00) 02/09/25 07:55 Eosinophils # 0.15 10*3/uL (0.04-0.35) 02/09/25 07:55 Basophils # 0.06 10*3/uL (0.00-0.10) 02/09/25 07:55 Sodium 140 mmol/L (137-145) 02/09/25 07:55 Potassium 4.6 mmol/L (3.5-5.1) 02/09/25 07:55 Chloride 104 mmol/L (98-107) 02/09/25 07:55 Carbon Dioxide 31 mmol/L (22-30) H 02/09/25 07:55 Anion Gap 5 mmol/L 02/09/25 07:55 BUN 16 mg/dL (7-17) 02/09/25 07:55 Creatinine 0.94 mg/dL (0.52-1.04) 02/09/25 07:55 Est GFR (CKD-EPI)AfAm >90 (>60 ml/min/1.73 sqM) 02/09/25 07:55 Est GFR (CKD-EPI)NonAf 78 (>60 ml/min/1.73 sqM) 02/09/25 07:55 Glucose 91 mg/dL (74-99) 02/09/25 07:55 POC Glucose (mg/dL) 164 mg/dL (70-110) H 02/12/25 17:00 POC Glu Constitutional Law Professor ID jayce Wild 02/12/25 17:[address] Glu mg/dL 117 mg/dL 02/09/25 07:55 Hemoglobin A1c 5.7 % (<=6.0) 02/09/25 07:55 Calcium 9.4 mg/dL (8.4-10.2) 02/09/25 07:55 Total Bilirubin 0.4 mg/dL (0.2-1.3) 02/09/25 07:55 AST 44 U/L (14-36) H 02/09/25 07:55 ALT 111 U/L (4-34) H 02/09/25 07:55 Alkaline Phosphatase 53 U/L (38-126) 02/09/25 07:55 Total Protein 6.8 g/dL (6.3-8.2) 02/09/25 07:55 Albumin 4.0 g/dL (3.5-5.0) 02/09/25 07:55 Triglycerides 102.00 mg/dL (0.00-149.00) 02/09/25 07:55 Cholesterol 177.00 mg/dL (0.00-200.00) 02/09/25 07:55 LDL Cholesterol, Calc 87.0 mg/dL (0.0-131.0) 02/09/25 07:55 VLDL Cholesterol, Calc 20.40 mg/dL (5.00-40.00) 02/09/25 07:55 HDL Cholesterol 69.60 mg/dL (40.00-60.00) H 02/09/25 07:55 Cholesterol/HDL Ratio 2.54 Ratio 02/09/25 07:55 TSH 5.140 mIU/L (0.465-4.680) H 02/09/25 07:55 Free T4 0.49 ng/dL (0.78-2.19) L 02/14/25 07:57 Urine Color Colorless 02/09/25 03:06 Urine Appearance Cloudy (Clear) H 02/09/25 03:06 Urine pH 7.0 (5.0-8.0) 02/09/25 03:06 Ur Specific [place] 1.009 (1.001-1.035) 02/09/25 03:06 Urine Protein Negative (Negative) 02/09/25 03:06 Urine Glucose (UA) Negative (Negative) 02/09/25 03:06 Urine Ketones Negative (Negative) 02/09/25 03:06 Urine Blood Negative (Negative) 02/09/25 03:06 Urine Nitrite Negative (Negative) 02/09/25 03:06 Urine Bilirubin Negative (Negative) 02/09/25 03:06 Urine Urobilinogen <2.0 mg/dL (<2.0) 02/09/25 03:06 Ur Leukocyte Esterase Negative (Negative) 02/09/25 03:06 Urine RBC 1 /hpf (0-5) 02/09/25 03:06 Urine WBC 1 /hpf (0-5) 02/09/25 03:06 Ur Squamous Epith Cells 1 /hpf (0-4) 02/09/25 03:06 Urine Bacteria Occasional /hpf (None) H 02/09/25 03:06 Urine HCG, Qual Not Detected (Not Detectd) 02/08/25 22:00 Urine Opiates Screen Not Detected (NotDetected) 02/08/25 22:00 Ur Oxycodone Screen Not Detected (NotDetected) 02/08/25 22:00 Urine Methadone Screen Not Detected (NotDetected) 02/08/25 22:00 Ur Barbiturates Screen Not Detected (NotDetected) 02/08/25 22:00 U Tricyclic Antidepress Detected (NotDetected) H 02/08/25 22:00 Ur Phencyclidine Scrn Not Detected (NotDetected) 02/08/25 22:00 Ur Amphetamines Screen Not Detected (NotDetected) 02/08/25 22:00 U Methamphetamines Scrn Not Detected (NotDetected) 02/08/25 22:00 U Benzodiazepines Scrn Not Detected (NotDetected) 02/08/25 22:00 [place] 0.3 mmol/L 02/14/25 07:57 Urine Cocaine Screen Not Detected (NotDetected) 02/08/25 22:00 U Marijuana (THC) Screen Not Detected (NotDetected) 02/08/25 22:00 Treponema pallidum Ab Nonreactive (Nonreactive) 02/10/25 07:03 Hepatitis A IgM Ab Nonreactive (Nonreactive) 02/10/25 07:03 Hep Bs Antigen Nonreactive (Nonreactive) 02/10/25 07:03 Hep B Core IgM Ab Nonreactive (Nonreactive) 02/10/25 07:03 Hep C IgG Ab Nonreactive (Nonreactive) 02/10/25 07:03 HIV-1 Antibody Non-Reactive (Non-Reactive) 02/10/25 07:03 HIV Ag/Ab Interpret 02/10/25 07:03 HIV p24 Antibody Non-Reactive (Non-Reactive) 02/10/25 07:03 HIV-2 Antibody Non-Reactive (Non-Reactive) 02/10/25 07:03 HIV P24 Antigen Non-Reactive (Non-Reactive) 02/10/25 07:03 SARS-CoV-2 (PCR) Not Detected (Not Detectd) 02/08/25 20:03 Vital Signs Temp 98.0 F 02/15/25 09:00 Pulse 95 02/15/25 09:00 Resp 16 02/14/25 20:45 BP 89/52 02/15/25 09:00 Pulse Ox 98 02/15/25 09:00 FiO2 Patient Condition at Discharge: Stable Plan - Discharge Summary Discharge Rx Participant: No New Discharge Prescriptions: New busPIRone HCl [Buspar] 20 mg PO TID 30 Days #180 tab Folic Acid 1 mg PO DAILY 30 Days #30 tab [place] Carbonate ER [Lithobid] 450 mg PO HS 30 Days #30 tab Ibuprofen [Motrin] 600 mg PO Q6HR PRN tab PRN Reason: Moderate Pain (Scale 4 To 6) Levothyroxine Sodium [Synthroid] 100 mcg PO DAILY@0630 30 Days #30 tab DULoxetine HCL [Cymbalta] 60 mg PO DAILY 30 Days #30 cap Multivitamins, Thera [Multivitamin (formulary)] 1 each PO DAILY 30 Days #30 tab Nicotine Gum (Polacrilex) [Nicorette] 2 mg BUCCAL Q2HR PRN 30 Days #180 pieceofgum PRN Reason: Nicotine Cravings Thiamine [Vitamin B-1] 100 mg PO DAILY 30 Days #30 tab OLANZapine [ZyPREXA] 5 mg PO BID PRN 30 Days #60 tab PRN Reason: severe anxiety/Agitation Continue QUEtiapine [SEROquel] 200 mg PO HS 30 Days #30 tab Discontinued DULoxetine HCL [Cymbalta] 60 mg PO DAILY busPIRone HCL [Buspirone HCl] 10 mg PO TID Discharge Medication List DULoxetine HCL [Cymbalta] 60 mg PO DAILY 30 Days #30 cap 02/15/25 [Rx] Folic Acid 1 mg PO DAILY 30 Days #30 tab 02/15/25 [Rx] Ibuprofen [Motrin] 600 mg PO Q6HR PRN tab 02/15/25 [Rx] Levothyroxine Sodium [Synthroid] 100 mcg PO DAILY@0630 30 Days #30 tab 02/15/25 [Rx] [place] Carbonate ER [Lithobid] 450 mg PO HS 30 Days #30 tab 02/15/25 [Rx] Multivitamins, Thera [Multivitamin (formulary)] 1 each PO DAILY 30 Days #30 tab 02/15/25 [Rx] Nicotine Gum (Polacrilex) [Nicorette] 2 mg BUCCAL Q2HR PRN 30 Days #180 pieceofgum 02/15/25 [Rx] OLANZapine [ZyPREXA] 5 mg PO BID PRN 30 Days #60 tab 02/15/25 [Rx] QUEtiapine [SEROquel] 200 mg PO HS 30 Days #30 tab 02/15/25 [Rx] Thiamine [Vitamin B-1] 100 mg PO DAILY 30 Days #30 tab 02/15/25 [Rx] busPIRone HCl [Buspar] 20 mg PO TID 30 Days #180 tab 02/15/25 [Rx] Follow up Appointment(s)/Referral(s): [facility] [NON-STAFF] - 1 Week Activity/Diet/Wound Care/Special Instructions: [facility] Discharge Info Avoid the use of street drugs and alcohol. Take all medications as prescribed. When you are in need of refills on your medications, please contact your outpatient medical provider and/or outpatient psychiatrist. Please go to your scheduled outpatient appointments for aftercare treatment. If symptoms return or become worse, call the crisis line at or and/or visit the nearest emergency room for assistance. [place] [facility] Lifeline - call or text 116. Follow up with PCP 6 weeks after discharge to recheck thyroid levels Discharge Disposition: DC/TRANSFER COURT/LAW Plan of Treatment: Follow-up with your PCP to monitor your thyroid levels.
== END 2025-02-15 19:42 | DRG 753 ==
LOC: EC 15:27 → 3MHU 23:41
PROVIDERS: ADMIT Psychiatry & Neurology Psychiatry; ATTEND Psychiatry & Neurology Psychiatry
DX: F31.30 Bipolar disorder, current episode depressed, mild or moderate severity, unspecified (principal); F10.10 Alcohol abuse, uncomplicated; F12.90 Cannabis use, unspecified, uncomplicated; F17.200 Nicotine dependence, unspecified, uncomplicated; F41.9 Anxiety disorder, unspecified; F43.10 Post-traumatic stress disorder, unspecified; F60.9 Personality disorder, unspecified; R45.851 Suicidal ideations; Z56.0 Unemployment, unspecified; Z72.51 High risk heterosexual behavior; Z79.899 Other long term (current) drug therapy; Z81.8 Family history of other mental and behavioral disorders; Z11.52 Encounter for screening for COVID-19
CPT/HCPCS: 80053; 80061; 80074; 80178; 80306; 81001; 81025; 82075; 83036; 84439; 84443; 85025; 86780; 87390; 87635; 99285